=== PATIENT | male | born 1980 | race Caucasian/White ===

== ENCOUNTER 2022-03-20 14:14 | Emergency (ER) | payer OTHER, SELFPAY ==
--- NOTE | ~2022-03-20 | XR_ITS ---
EXAMINATION: XR abdomen obstructive series DATE: 03/20/2022 14:35 INDICATION: Constipation and upper abdominal pain TECHNIQUE: Upright and supine views of the abdomen were obtained. COMPARISON: 07/08/2006 FINDINGS: There is no free intraperitoneal gas or evidence of bowel obstruction. The bowel gas patter n is normal. 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 Phleboliths are noted in the pelvi s. IMPRESSION: 1. Nonobstructive bowel gas pattern. Reviewed, dictated and finalized at location F.
--- NOTE | 2022-03-20 14:16 | ED.ABDPAIN ---
HPI - Abdominal Pain General Chief Complaint: Abdominal Pain Stated Complaint: ABD PAIN Time Seen by Provider: 03/20/22 14:16 Source: patient and RN notes reviewed History of Present Illness HPI narrative: Patient is a 41-year-old male who presents the urgent care with complaints of intermittent abdominal discomfort. Patient states that started Thursday when he woke up with abdominal pain at the umbilicus. Patient states that he has had 2 bowel movements since Thursday that have both been loose and small. Patient states he had issues with constipation in the past and has not taken anything [id number] for constipation. Patient states he has been drinking fluids without any nausea or vomiting. Reports a slight decrease in appetite. Denies of any fever. Denies any urinary changes or symptoms. Patient states he is concerned about a possible bowel obstruction. No other acute complaints. No acute distress noted. Patient aware of the plan of care. Some parts of this dictation were generated by voice recognition software and may contain typographical and/or grammatical inaccuracies. Related Data Allergies Allergy/AdvReac Type Severity Reaction Status Date / Time No Known Allergies Allergy Mild Verified 12/10/07 08:30 Review of Systems Review of Systems: CONSTITUTIONAL: Denies fever, chills, or sweats. EYES: Denies visual changes, redness, or discharge. ENT: Denies rhinorrhea, congestion, sore throat, or otalgia. CARDIOVASCULAR: Denies chest pain, palpitations, or edema. RESPIRATORY: Denies cough or dyspnea. GASTROINTESTINAL: Reports of lower right abdominal pain without nausea, vomiting or diarrhea GENITOURINARY: Denies dysuria or hematuria. SKIN: Denies rash or itching. MUSCULOSKELETAL: Denies back pain, joint pain, or myalgia. NEUROLOGIC: Denies headache, numbness, or weakness. All other systems reviewed are negative, except as documented in HPI. PMFSH Comments At the time of my signature, I reviewed and agree with the nursing past medical, surgical, social, and family history. There is no relevant family history pertinent to the patient complaint. Exam Narrative: GENERAL: This is a well-nourished, well-developed patient, in no apparent distress. HEAD: normocephalic, atraumatic. EYES: PERRL. Sclera clear/white. Vision is grossly intact. EARS: External ears normal NOSE: External nose normal with no obvious nasal discharge, nares without redness, no rhinorrhea. THROAT: Mucous membranes moist NECK: Neck supple CARDIOVASCULAR: Regular rate and rhythm without murmurs, gallops, or rubs. RESPIRATORY: Clear to auscultation. Breath sounds equal bilaterally. No wheezes, rales, or rhonchi. GASTROINTESTINAL: Abdomen soft, moderate lower right abdominal tenderness with palpation nondistended. Bowel sounds are active. SKIN: warm, intact with no suspicious lesions or rash, good texture and turgor. NEURO: awake, alert, and oriented to person, place and time. There were no obvious focal neurologic abnormalities. EXTREMITIES: No clubbing, cyanosis, or edema. Course Course Level of Care: Express Care Visit Vital Signs Vital signs: Vital Signs Temperature 98.6 F 03/20/22 14:26 Pulse Rate 68 03/20/22 14:26 Respiratory Rate 16 03/20/22 14:26 Blood Pressure 144/93 H 03/20/22 14:26 Pulse Oximetry 98 03/20/22 14:26 Temperature 98.6 F 03/20/22 14:26 Pulse Rate 68 03/20/22 14:26 Respiratory Rate 16 03/20/22 14:26 Blood Pressure 144/93 H 03/20/22 14:26 Pulse Oximetry 98 03/20/22 14:26 Reviewed-patient is informed that they may have pre-hypertension or hypertension based on a blood pressure reading in the department. I recommend the patient call the primary care provider listed on their discharge instructions or a physician of their choice this week to arrange follow-up for further evaluation of possible pre-hypertension or hypertension. Transfer Transfered to: [facility]: Other (Private ca
[2022-03-20 14:26] VITALS: BP 144/93; PULSE 68; RESP 16; TEMP 37; O2SAT 98
== END 2022-03-20 14:54 | disposition short-term general hospital (02) ==
PROVIDERS: Emergency Provider Nurse Practitioner Family
DX: R10.31 Right lower quadrant pain (principal)
CPT/HCPCS: 74019; 99212; G0463

== ENCOUNTER 2022-03-20 15:13 | Emergency (ER) | payer OTHER, SELFPAY ==
--- NOTE | ~2022-03-20 | CT_ITS ---
EXAMINATION: CT abdomen pelvis w con INDICATION: Right lower quadrant abdominal pain and nausea TECHNIQUE: Computed tomographic images of the abdomen and pelvis were obtained after the administrati on of 100 cc of Omnipaque 350 intravenous contrast. The dose-length product (DLP) was 1580.82 mGy-cm. Automated exposure control and iterative reconstruction technique were employed. COMPARISON: None available FINDINGS: The lung bases are clear. The heart size is normal. The liver, spleen, pancreas, gallbladde r, and adrenal glands are normal. 8 mm hypoattenuating lesion of the right kidney is too small to frandy racterize but likely represents a cyst. The left kidney is unremarkable. The appendix is normal. Ther e is wall thickening with adjacent edematous stranding of the pericolic fat involving the descending and proximal sigmoid colon. There is mild lumbar spondylosis. IMPRESSION: 1. Wall thickening of the descending and proximal sigmoid colon with adjacent fat stranding, consiste nt with colitis. Reviewed, dictated and finalized at location F. IMPRESSION: 1. Wall thickening of the descending and proximal sigmoid colon with adjacent f at stranding, consistent with colitis.
[2022-03-20 15:35] VITALS: BP 125/83; PULSE 77; RESP 14; TEMP 36.8; O2SAT 100
[2022-03-20 15:53] LABS: Basophils Percent Auto 0.2 % (0.2-1.2); Eosinophils Absolute Auto 0.1 K/mm3 (0-0.3); Hematocrit 41.1 % (42.0-52.0); Hemoglobin 14.1 g/dL (14.0-18.0); Immature Granulocyte Absolute 0.01 K/mm3 (0.00-0.031); Immature Granulocyte Percent A 0.2 % (0-0.5); Lymphocytes Absolute Auto 1.83 K/mm3 (0.9-3.2); Lymphocytes Percent Auto 29.2 % (18.3-44.2); Mean Corpuscular HGB Conc 34.3 g/dl (32-36); Mean Corpuscular Hemoglobin 32.3 pg (26-34); Mean Corpuscular Volume 94.1 fl (80-100); Mean Platelet Volume 9.8 fl (7.4-10.4); Monocytes Absolute Auto 0.4 K/mm3 (0.1-0.6); Monocytes Percent Auto 6.5 % (2.6-8.5); Neutrophils Percent Auto 62.9 % (45.5-73.1); Platelet Count Result 192 k/mm3 (150-375); Red Blood Count 4.37 M/mm3 (4.6-6.20); Red Cell Distribution Width 12.6 % (11.5-14.5); White Blood Count 6.3 K/mm3 (4.5-10.0)
[2022-03-20 15:57] LABS: Add Urine Microscopic? YES; Appearance Urine Clear (Clear); Bilirubin Urine Negative (Negative); Blood Urine Negative (Negative); Color Urine Yellow (Yellow); Glucose Urine UA Negative (Negative); Ketones Urine 2+ mg/dL (Negative); Leukocyte Esterase Ur Negative LEU/UL (Negative); Mucus Urine Rare /lpf; Nitrate Urine Negative (Negative); Protein Urine Negative (Negative); RBC Urine 0-2 /hpf (0-2); Specific Grav Ur 1.009 (1.001-1.035); Urobilinogen Urine Negative mg/dL (<2.0); WBC Urine 0-3 /hpf
[2022-03-20 16:07] LABS: Alanine Aminotransferase 18 U/L (6-50); Albumin Level 4.2 g/dL (3.5-5.1); Alkaline Phosphatase 56 U/L (38-126); Anion Gap 12 mmol/L (8-16); Aspartate Amino Transferase 17 U/L (17-59); Bilirubin,Total 0.5 mg/dL (0.2-1.3); Blood Urea Nitrogen 8 mg/dL (9-20); Carbon Dioxide 28 mmol/L (22-30); Chloride 101 mmol/L (98-107); Estimated CRCL calculation 134 ml/min; Estimated Glomerular Filt Rate > 60; Glucose 86 mg/dL (65-110); Lipase 38 U/L (23-300); Potassium 3.5 mmol/L (3.4-5.0); Sodium 141 mmol/L (137-145)
--- NOTE | 2022-03-20 17:32 | ED.ABDPAIN ---
HPI - Abdominal Pain General Chief Complaint: Abdominal Pain <CARRIE Peraza Last Filed: 03/20/22 19:32> Stated Complaint: bowel obstruction? <CARRIE Peraza Last Filed: 03/20/22 19:32> Time Seen by Provider: 03/20/22 17:14 <CARRIE Peraza Last Filed: 03/20/22 19:32> History of Present Illness HPI narrative: Patient is a 41-year-old healthy male here for evaluation of right lower quadrant abdominal pain for the past 2 days. Patient states the pain is intermittent in nature, comes on without obvious trigger, but when it is there it is severe. Pain is currently a 1 out of 10. His last bowel movement was Thursday and states that it was small in caliber. Since then he has not passed gas. Additionally reports nausea but no vomiting. No fevers, shortness of breath, chest pain, leg swelling. He has never had any abdominal surgeries in the past. <CARRIE Peraza Last Filed: 03/20/22 19:32> Related Data Home Medications: Home Medications Medication Instructions Recorded Confirmed No Home Medications 03/20/22 03/20/22 <CARRIE Peraza Last Filed: 03/20/22 19:32> Allergies/Adverse Reactions: Allergies Allergy/AdvReac Type Severity Reaction Status Date / Time No Known Allergies Allergy Mild Verified 12/10/07 08:30 <CARRIE Peraza Last Filed: 03/20/22 19:32> Review of Systems Review of Systems: Gen: Denies fevers or chills Eyes: Denies eye pain or visual change ENT: Denies congestion Respiratory: Denies shortness of breath or cough CV: Denies chest pain or palpitations GI: Reports abdominal pain and nausea. : denies burning, urgency, frequency or hematuria Musculoskeletal: Denies back pain or muscle pain Neuro: Denies numbness, tingling, weakness or focal weakness Skin: Denies rash Except as documented, all other systems reviewed and negative <CARRIE Peraza Last Filed: 03/20/22 19:32> Exam Narrative: APPEARANCE: Well appearing, no pain in distress, well-nourished. Head: Normocephalic and atraumatic. EYES: PERRLA/EOMI, conjunctivae clear NOSE: No nasal drainage EARS: External ear normal in appearance THROAT: Oropharynx is clear. Mucous membranes are moist. NECK: Supple. No adenopathy, no masses. RESPIRATORY: Airway patent, respirations nonlabored. Clear to auscultation bilaterally, no rales, rhonchi, wheezing. CARDIOVASCULAR: Regular rate and rhythm without murmurs, rubs, or gallops. ABDOMINAL: Tender to palpation in right lower quadrant. Normoactive bowel sounds. Soft, nontender, nondistended. MUSCULOSKELETAL: Extremities are warm and well-perfused. Moves all extremities well. No edema. NEURO: Normal speech. No focal neurologic deficits. SKIN: Skin is warm and dry. No rashes. PSYCHIATRIC: Normal affect/mood. <Hortensia Aguirre PA-C - Last Filed: 03/20/22 19:32> Course TELEVISION INSTALLER/PA Physician Supervision For this patient encounter, I reviewed the TELEVISION INSTALLER or PA documentation, treatment plan, and medical decision making <Ag Domínguez MD - Last Filed: 03/21/22 07:25> Vital Signs Vital signs: Vital Signs Temperature 98.2 F 03/20/22 15:35 Pulse Rate 77 03/20/22 15:35 Respiratory Rate 14 03/20/22 15:35 Blood Pressure 125/83 03/20/22 15:35 Pulse Oximetry 100 03/20/22 15:35 Oxygen Delivery Room Air 03/20/22 15:35 Temperature 98.3 F 03/20/22 17:55 Pulse Rate 75 03/20/22 17:55 Respiratory Rate 18 03/20/22 17:55 Blood Pressure 142/76 H 03/20/22 17:55 Pulse Oximetry 99 03/20/22 17:55 Oxygen Delivery Room Air 03/20/22 17:55 <Hortensia Aguirre PA-C - Last Filed: 03/20/22 19:32> Vital Signs Temperature 98.2 F 03/20/22 15:35 Pulse Rate 77 03/20/22 15:35 Respiratory Rate 14 03/20/22 15:35 Blood Pressure 125/83 10/13/22 15:35 Pulse Oximetry 100 03/20/22 15:35 Oxygen Delivery Room Air 03/20/22 15:35
[2022-03-20 17:55] VITALS: BP 142/76; PULSE 75; RESP 18; TEMP 36.8; O2SAT 99
== END 2022-03-20 19:30 | disposition home or self-care (01) ==
PROVIDERS: Emergency Provider Emergency Medicine
DX: K52.9 Noninfective gastroenteritis and colitis, unspecified (principal)
CPT/HCPCS: 36415; 74019; 74177; 80053; 81001; 83690; 85025; 99284; Q9967

== ENCOUNTER 2022-11-21 00:24 | Day surgery (SDC) | payer OTHER, SELFPAY ==
[2022-11-14 14:52] VITALS: BMI 30.3
--- NOTE | 2022-11-21 08:11 | P.PNAN_ITS ---
Anes - Initial Pre Proc Eval Procedure: Operation Date: 11/21/22 12:30 Proposed Procedures p Colonoscopy - Dev Pabon MD Date/Time: 11/21/22 08:11 Surgeon: Dev Pabon MD Pre Op Diagnosis: constipation, hemorrhage of anus and rectum Patient Data Age: 41 Gender: M Height: 1.88 m Weight: 107.3 kg Allergies Allergy/AdvReac Type Severity Reaction Status Date / Time No Known Allergies Allergy Mild Verified 11/14/22 14:53 Home Medications Medication Instructions Recorded Confirmed Type ibuprofen 200 mg tablet 200 mg PO Q6H PRN Pain (Scale 10/29/22 11/14/22 History Score 1-3) polyethylene glycol 3350 17 17 g PO DAILY PRN Constipation 10/29/22 11/14/22 History gram/dose oral powder (Miralax) Patient hx anesthesia problems: none Family hx anesthesia problems: none Results Review: All pre-operative results and documents have been reviewed as part of the pre- operative evaluation. [facility] Past Medical History Medical History (Updated 11/21/22 @ 08:11 by Christopher Mathias MD) Obesity Social History Social History (Updated 10/29/22 @ 13:55 by Lucia Mcdaniel) Smoking status: Never smoker Alcohol intake: current Alcohol use details: socially on occasion Substance use: never Substance use type: does not use Living arrangements: alone Occupation/Education: occupation Gender identity (if verbalized by the patient): Male Spiritual care concerns: No Anes - Eval Final PreProcedure Day of Procedure 11/21/22 08:11 Patient weight: obese Heart: regular rate and rhythm Lungs: clear to auscultation and normal air movement Airway: Mallampati scale class II Neurological: alert and oriented Last oral intake: >/= 8 hours ASA classification: II Emergent: no Anesthetic plan: proceed Anesthesia type and monitoring: general GIVS Results Review: All pre-operative results and documents have been reviewed as part of the pre- operative evaluation. Informed Consent: The patient's anesthetic plan and its attendant risks and benefits were discussed with the patient/family/POA. Questions were solicited and answers provided to the satisfaction of the patient/family/POA.
[2022-11-21 11:37] VITALS: BP 123/69; PULSE 63; RESP 18; TEMP 36.6; O2SAT 63
[2022-11-21] MEDS: LACTATED RINGERS 1,000 ML 150 ML IV CONT (11:50)
--- NOTE | 2022-11-21 12:34 | PM.HPGS ---
History of Present Illness History of Present Illness Consent: Risks, benefits, and alternatives have been discussed and questions answered. Patient agrees to proceed with procedure. Chief complaint: constipation, hemorrhage of anus and rectum Narrative: Jatinder Terrazas is a 41 year old male Presents for colonoscopy. Patient has a history of constipation for quite some time many years. He states over last 6 months this is worsened. States when he becomes very constipated and strains he will occasionally have bright red blood per rectum and anal discomfort. Patient has intentionally lost weight over the last 3 years has lost 100lb perhaps. Patient presents today for colonoscopy to exclude other organic disease. His family history is noncontributory. Patient's current medications include Metamucil occasionally with MiraLax 2 times a week. Family history is noncontributory. Review of Systems Review of Systems: Review of systems noncontributory. [facility] Past Medical History Medical History (Updated 11/21/22 @ 12:36 by Dev Pabon MD) Obesity Social History Social History (Updated 10/29/22 @ 13:55 by Lucia Mcdaniel) Smoking status: Never smoker Alcohol intake: current Alcohol use details: socially on occasion Substance use: never Substance use type: does not use Living arrangements: alone Occupation/Education: occupation Gender identity (if verbalized by the patient): Male Spiritual care concerns: No Meds Home Medications and Allergies Home Medications Medication Instructions Recorded Confirmed Type ibuprofen 200 mg tablet 200 mg PO Q6H PRN Pain (Scale 10/29/22 11/14/22 History Score 1-3) polyethylene glycol 3350 17 17 g PO DAILY PRN Constipation 10/29/22 11/14/22 History gram/dose oral powder (Miralax) Allergies Allergy/AdvReac Type Severity Reaction Status Date / Time No Known Allergies Allergy Mild Verified 11/14/22 14:53 Vital Signs Vital Signs - 24 hr 11/21/22 11:37 Temperature 97.9 F Pulse Rate 63 Respiratory Rate 18 Blood Pressure 123/69 Pulse Oximetry 63 L Oxygen Delivery Room Air Exam Narrative: Physical exam reveals patient to be alert. Vital signs stable. HEENT exam is unremarkable. Patient is anicteric. Lungs are clear to auscultation and percussion. Heart is without murmur or extra sounds. Abdomen bowel sounds are present soft nontender with no organomegaly. Digital external rectal exam normal. Assessment and Plan Assessment and plan (1) Constipation: Code(s): K59.00 - Constipation, unspecified Status: Acute Assessment and Plan: Patient with constipation has been longstanding. This suggests chronic idiopathic constipation. Agree with MiraLax 17g p.o. every other day if needed. Fiber stool softeners such as Metamucil may be of some additional benefit. Further recommendations will be given after colonoscopy. (2) Rectal bleeding: Code(s): K62.5 - Hemorrhage of anus and rectum Status: Acute Assessment and Plan: Rectal bleeding after passing hard constipated stool suggest hemorrhoid bleeding. Stool softeners may be of some benefit. Metamucil is advised. Further recommendations may be given after endoscopy.
[2022-11-21 13:23] VITALS: BP 91/53; PULSE 79; RESP 17; O2SAT 98
[2022-11-21 13:33] VITALS: BP 102/62; PULSE 72; RESP 15; O2SAT 98
[2022-11-21 13:43] VITALS: BP 107/62; PULSE 70; RESP 16; O2SAT 99
== END 2022-11-21 13:50 | disposition home or self-care (01) ==
PROVIDERS: PCP Family Medicine; Visit Provider Internal Medicine Gastroenterology
PROC: 0DJD8ZZ Inspection of Lower Intestinal Tract, Via Natural or Artificial Opening Endoscopic (ICD-10-PCS; CPT 45378; principal; 2022-11-21 12:30)
DX: K59.00 Constipation, unspecified (principal); K62.5 Hemorrhage of anus and rectum; K64.8 Other hemorrhoids
CPT/HCPCS: 45378; J2704; J7120